=== PATIENT | female | born 1990 | race Caucasian/White ===

== ENCOUNTER 2016-12-15 15:08 | Emergency (ER) | payer MEDICAID ==
[~2016-12-15] VITALS: Ht 167.6 cm; Wt 62.3 kg
[~2016-12-15 15:08] MED LIST: DOCU-30 PO; FERR325T20 PO; HYDR-3240 PO; IBUP800T PO
[2016-12-15] MEDS ORDERED: MORPHINE SULFATE 4 MG/ML, 1ML ONE (15:52)
[2016-12-15] MEDS ORDERED: ONDANSETRON 2MG/ML, 2ML ONE (15:52)
[2016-12-15] MEDS ORDERED: SODIUM CHLORIDE 0.9% 1,000ML IVBOLUS ONE (16:00)
[2016-12-15] MEDS ORDERED: MORPHINE SULFATE 4 MG/ML, 1ML IVPush ONE (16:00)
[2016-12-15] MEDS ORDERED: SODIUM CHLORIDE FLUSH 10ML SYR IVF ONE (16:00)
[2016-12-15] MEDS ORDERED: ONDANSETRON 2MG/ML, 2ML IVPush ONE (16:00)
[2016-12-15 16:10] LABS: BLOOD UREA NITROGEN 11 mg/dL (7-18)
[2016-12-15] MEDS ORDERED: KETOROLAC 30 MG/1 ML IVPush ONE (17:00)
[2016-12-15 17:03] VITALS: BP 87/47
[2016-12-15] MEDS ORDERED: PHENAZOPYRIDINE 200 MG TABLET ONE (17:29)
[2016-12-15] MEDS ORDERED: PHENAZOPYRIDINE 200 MG TABLET PO ONE (17:30)
[2016-12-15] MEDS ORDERED: CEFDINIR 300 MG CAPSULE PO ONE (17:30)
== END 2016-12-15 18:14 | disposition home or self-care (01) ==
LOC: ED 17:30
DX: N10 Acute pyelonephritis (principal); Z30.430 Encounter for insertion of intrauterine contraceptive device
CPT/HCPCS: 36415; 76830; 80048; 81001; 82040; 84703; 85025; 87077; 87086; 87186; 96374; 96375; 99285; J2405; J7030

== ENCOUNTER 2017-11-09 17:23 | Emergency (ER) | payer OTHER ==
[~2017-11-09] VITALS: Ht 170.2 cm; Wt 64.8 kg
[~2017-11-09 17:23] MED LIST changes: +DOCU-131 PO; -DOCU-30 PO; +FERR325T18 PO; -FERR325T20 PO; +IBUP-1223 PO; -IBUP800T PO
[2017-11-09] MEDS ORDERED: SODIUM CHLORIDE 0.9% 1,000 ML IV ONE (17:46)
[2017-11-09] MEDS ORDERED: ONDANSETRON ODT 4 MG PO ONE (18:00)
[2017-11-09] MEDS ORDERED: SODIUM CHLORIDE 0.9% 1,000ML IVBOLUS ONE (18:00)
[2017-11-09] MEDS ORDERED: ONDANSETRON ODT 4 MG ONE (18:02)
[2017-11-09] MEDS ORDERED: IBUPROFEN 200 MG TABLET ONE (18:44)
[2017-11-09 18:47] VITALS: BP 107/67
[2017-11-09] MEDS ORDERED: FERR160T4 PO (18:48)
[2017-11-09 18:55] LABS: BASOPHILS # (AUTO) 0.05 x10^3/uL (0-0.1); BASOPHILS % (AUTO) 1 % (0-1); EOSINOPHILS # (AUTO) 0.05 x10^3/uL (0-0.4); EOSINOPHILS % (AUTO) 1 % (1-7); LYMPHOCYTES # (AUTO) 1.97 x10^3/uL (1-3.4); LYMPHOCYTES % (AUTO) 26 % (22-44); MD NO; MEAN CORPUSCULAR HEMOGLOBIN 27.5 pg (27.0-34.8); MEAN CORPUSCULAR HGB CONC 32.8 g/dL (32.4-35.8); MEAN CORPUSCULAR VOLUME 83.7 fL (80-100); MEAN PLATELET VOLUME 7.6 fL (7.4-10.4); MONOCYTES # (AUTO) 0.53 x10^3/uL (0.2-0.8); MONOCYTES % (AUTO) 7 % (2-9); NEUTROPHILS # (AUTO) 5.11 x10^3/uL (1.8-6.8); NEUTROPHILS % (AUTO) 66 % (42-75); PLATELET COUNT 300 x10^3/uL (130-400); RED BLOOD COUNT 4.57 x10^6/uL (3.82-5.3); RED CELL DISTRIBUTION WIDTH 19.3 % (9.6-15.2)
[2017-11-09] MEDS ORDERED: IBUPROFEN 200 MG TABLET PO ONE (19:00)
[2017-11-09 19:01] LABS: MICROSCOPIC NOT IND
[2017-11-09 19:07] LABS: CULTURE INDICATED? NO
[2017-11-09 19:07] LABS: ANION GAP 6 mmol/L (5-15); CALCIUM 9.2 mg/dL (8.5-10.1); CHLORIDE 105 mmol/L (98-107)
[2017-11-09 19:13] LABS: ALANINE AMINOTRANSFERASE 17 U/L (12-78); ALKALINE PHOSPHATASE 66 U/L (45-117); BILIRUBIN,TOTAL 0.7 mg/dL (0.2-1.0); CREATININE 1.14 mg/dL (0.55-1.02); TOTAL PROTEIN 7.9 g/dL (6.4-8.2)
== END 2017-11-09 20:20 ==
LOC: ED 20:14
DX: R10.2 Pelvic and perineal pain (principal); N39.0 Urinary tract infection, site not specified; N83.209 Unspecified ovarian cyst, unspecified side; Z87.891 Personal history of nicotine dependence; Z97.5 Presence of (intrauterine) contraceptive device
CPT/HCPCS: 36415; 76830; 80053; 81003; 83690; 84703; 85025; 93005; 96360; 96361; 99285; J7030; Q0162

== ENCOUNTER 2018-02-09 17:43 | Emergency (ER) | payer OTHER ==
[~2018-02-09] VITALS: Ht 167.6 cm; Wt 65.0 kg
[~2018-02-09 17:43] MED LIST changes: +FERR160T4 PO
[2018-02-09 18:00] VITALS: BP 100/67
== END 2018-02-09 19:32 | disposition home or self-care (01) ==
LOC: ED 19:20
DX: S93.691A Other sprain of right foot, initial encounter (principal); X58.XXXA Exposure to other specified factors, initial encounter; Y93.89 Activity, other specified; Y99.8 Other external cause status; Y92.89 Other specified places as the place of occurrence of the external cause
CPT/HCPCS: 99284

== ENCOUNTER 2018-05-12 18:44 | Emergency (ER) | payer SELFPAY ==
[~2018-05-12] VITALS: Ht 167.6 cm; Wt 65.9 kg
[2018-05-12 20:14] LABS: MICROSCOPIC AUTO
[2018-05-12 20:14] LABS: BASOPHILS # (AUTO) 0.08 x10^3/uL (0-0.1); BASOPHILS % (AUTO) 1 % (0-1); EOSINOPHILS # (AUTO) 0.18 x10^3/uL (0-0.4); EOSINOPHILS % (AUTO) 2 % (1-7); LYMPHOCYTES # (AUTO) 2.23 x10^3/uL (1-3.4); LYMPHOCYTES % (AUTO) 29 % (22-44); MD NO; MEAN CORPUSCULAR HEMOGLOBIN 27.8 pg (27.0-34.8); MEAN CORPUSCULAR HGB CONC 32.8 g/dL (32.4-35.8); MEAN CORPUSCULAR VOLUME 84.8 fL (80-100); MEAN PLATELET VOLUME 7.2 fL (7.4-10.4); MONOCYTES # (AUTO) 0.54 x10^3/uL (0.2-0.8); MONOCYTES % (AUTO) 7 % (2-9); NEUTROPHILS % (AUTO) 61 % (42-75); PLATELET COUNT 283 x10^3/uL (130-400); RED BLOOD COUNT 4.36 x10^6/uL (3.82-5.3); RED CELL DISTRIBUTION WIDTH 14.9 % (9.6-15.2)
[2018-05-12 20:16] LABS: ALBUMIN 4.1 g/dL (3.4-5.0); ANION GAP 6 mmol/L (5-15); CALCIUM 8.6 mg/dL (8.5-10.1); CHLORIDE 108 mmol/L (98-107)
[2018-05-12 20:18] LABS: CULTURE INDICATED? YES
[2018-05-12] MEDS ORDERED: KETOROLAC 30 MG/1 ML ONE (20:55)
[2018-05-12] MEDS ORDERED: KETOROLAC 30 MG/1 ML IM ONE (21:00)
[2018-05-12 21:49] VITALS: BP 101/66
== END 2018-05-12 22:33 | disposition home or self-care (01) ==
LOC: ED 20:37
DX: R10.32 Left lower quadrant pain (principal)
CPT/HCPCS: 36415; 74176; 76830; 80048; 81001; 82040; 84703; 85025; 87086; 96372; 99284; J1885; 87077; 87186

== ENCOUNTER 2020-11-12 13:18 | Emergency (ER) | payer OTHER ==
[~2020-11-12] VITALS: Ht 167.6 cm; Wt 64.5 kg
[~2020-11-12 13:18] MED LIST changes: +HYDR-2214 PO; -HYDR-3240 PO
[2020-11-12] MEDS ORDERED: LIDOCAINE 1%, 10ML INFIL ONE (16:00)
[2020-11-12 16:42] VITALS: BP 106/58
== END 2020-11-12 16:44 | disposition home or self-care (01) ==
LOC: ED 16:35
DX: L02.01 Cutaneous abscess of face (principal); L03.211 Cellulitis of face
CPT/HCPCS: 10060; 99283